=== PATIENT | male | born 1945 | race Two or more races ===

== ENCOUNTER 2022-05-28 08:32 | Inpatient (IN) | payer OTHER ==
[~2022-05-28] VITALS: Ht 165.1 cm; Wt 73.2 kg
[~2022-05-28 08:32] MED LIST: ASPI1TAB20 PO; GABA300C10 PO; GLIM-5 PO; HYDR1TAB97 PO; LISI2.5T47 PO; METF-371 PO; TAMS0.4C36 PO
[2022-05-28] MEDS ORDERED: ceFAZolin 1GM/50ML 100 ML IV ONE (08:49)
[2022-05-28] MEDS ORDERED: GELATIN 1 SPONGE SIZE 100 TOP ONE (11:38)
[2022-05-28] MEDS ORDERED: MIDAZOLAM HCL 2MG/2ML 2ml VIAL (1mg/ml) ONE (12:25)
[2022-05-28] MEDS ORDERED: fentaNYL CITRATE 100 MCG/2 ML VL ONE ×2 (12:25→14:59)
[2022-05-28] MEDS ORDERED: SUGAMMADEX 200mg/2ml Vial (100MG/ML) IV ONE (14:17)
[2022-05-28] MEDS ORDERED: PROPOFOL 10 MG/ML 20 ML IV ONE (14:55)
[2022-05-28] MEDS ORDERED: ceFAZolin 1GM/50ML 50 ML IV SCH (16:00)
[2022-05-28] MEDS ORDERED: ACETAMINOPHEN 325 MG TAB PO PRN (16:00)
[2022-05-28] MEDS ORDERED: NITROGLYCERIN 0.4 MG SL TAB SL PRN (16:00)
[2022-05-28] MEDS ORDERED: MORPHINE SULFATE INJ 2 MG/ml SYRG IV PRN ×2 (16:00)
[2022-05-28] MEDS ORDERED: ONDANSETRON HCL 4 MG/2 ML VIAL IV PRN ×2 (16:00→16:45)
[2022-05-28] MEDS ORDERED: fentaNYL CITRATE 5 ML ONE (16:06)
[2022-05-28] MEDS ORDERED: HYDROmorphone HCL 2 MG/ML VL/or syr IV PRN (16:45)
[2022-05-28] MEDS: HYDROmorphone HCL 2 MG/ML VL/or syr IV PRN ×4 (17:07→17:37)
[2022-05-28] MEDS: D5W/SOD CHLO 0.9% 1,000 ML IV SCH (21:52)
[2022-05-28] MEDS: ceFAZolin 1GM/50ML 50 ML IV SCH (21:53)
[2022-05-28 22:00] VITALS: BP 134/59
[2022-05-29] MEDS: D5W/SOD CHLO 0.9% 1,000 ML IV SCH ×2 (02:00→12:00)
[2022-05-29 05:00] VITALS: BP 145/56
[2022-05-29] MEDS: HYDROcodone-ACET 10/325MG TAB PO PRN (05:18)
[2022-05-29] MEDS: ceFAZolin 1GM/50ML 50 ML IV SCH (05:40)
[2022-05-29 09:00] VITALS: BP 125/44
[2022-05-29 13:00] VITALS: BP 133/60
[2022-05-29 17:00] VITALS: BP 106/55
[2022-05-29] MEDS: DOCUSATE SOD 100 MG CAP PO SCH (21:36)
[2022-05-29 22:00] VITALS: BP 144/51
[2022-05-29] MEDS: CYCLOBENZAPRINE HCL 10 MG TAB PO SCH (22:00)
[2022-05-30 05:00] VITALS: BP 155/59
[2022-05-30] MEDS: CYCLOBENZAPRINE HCL 10 MG TAB PO SCH ×3 (06:00→15:21)
[2022-05-30] MEDS: HYDROcodone-ACET 10/325MG TAB PO PRN (06:27)
[2022-05-30 08:00] VITALS: BP 149/60
[2022-05-30] MEDS: DOCUSATE SOD 100 MG CAP PO SCH (09:11)
[2022-05-30 11:06] LABS: Basophils # (auto) 0 10 ^3/uL (0-0.2); Basophils % (auto) 0.3 % (0.0-2.0); Eosinophils # (auto) 0 10 ^3/uL (0-0.8); Eosinophils % (auto) 0.2 % (0.0-7.0); Hematocrit 34.2 % (41.0-53.0); Hemoglobin 11.6 g/dL (13.5-17.5); Lymphocytes % (auto) 9.5 % (10.0-50.0); Mean Corpuscular Hemoglobin 30.6 pg (28.0-32.0); Mean Corpuscular Hgb Conc. 33.9 g/dL (32.0-36.0); Mean Corpuscular Volume 90.1 fL (80.0-100.0); Monocytes % (auto) 9.8 % (0.0-12.0); Neutrophils # (auto) 8.2 10 ^3/uL (1.6-8.6); Neutrophils % (auto) 80.2 % (37.0-80.0); Red Cell Distribution Width 14.3 % (11.8-14.3); White Blood Cell 10.2 10^3/uL (4.4-10.8)
[2022-05-30 11:46] LABS: BUN/Creatinine Ratio 15.1; Calcium 8.2 mg/dL (8.5-10.1); Potassium 4.4 mmol/L (3.5-5.1)
[2022-05-30 12:00] VITALS: BP 158/61
[2022-05-30 16:00] VITALS: BP 118/64
== END 2022-05-30 18:30 | disposition home or self-care (01) | DRG 455 ==
LOC: SUR 08:32 → UNDOADMIN 15:58 → TELE 15:58 → TELE-WESTW 18:12
PROVIDERS: ADMIT Orthopaedic Surgery; ATTEND Orthopaedic Surgery
PROC: 01NB0ZZ Release Lumbar Nerve, Open Approach (ICD-10-PCS; 2022-05-28)
PROC: 00NY0ZZ Release Lumbar Spinal Cord, Open Approach (ICD-10-PCS; 2022-05-28)
PROC: 4A11X4G Monitoring of Peripheral Nervous Electrical Activity, Intraoperative, External Approach (ICD-10-PCS; 2022-05-28)
PROC: 0SG0071 Fusion of Lumbar Vertebral Joint with Autologous Tissue Substitute, Posterior Approach, Posterior Column, Open Approach (ICD-10-PCS; 2022-05-28)
PROC: 0SG00AJ Fusion of Lumbar Vertebral Joint with Interbody Fusion Device, Posterior Approach, Anterior Column, Open Approach (ICD-10-PCS; principal; 2022-05-28 12:21)
DX: M48.061 Spinal stenosis, lumbar region without neurogenic claudication (principal); M54.16 Radiculopathy, lumbar region; I10 Essential (primary) hypertension; N40.0 Benign prostatic hyperplasia without lower urinary tract symptoms; E11.40 Type 2 diabetes mellitus with diabetic neuropathy, unspecified; Z20.822 Contact with and (suspected) exposure to COVID-19; M51.36 Other intervertebral disc degeneration, lumbar region
CPT/HCPCS: 36415; 72100; 76000; 80048; 82962; 85025; 86850; 86900; 86901; 97116; 97163; 97530; G0378; J0690; J2250; J2704; J7042

== ENCOUNTER 2022-08-25 08:15 | Inpatient (IN) | payer OTHER ==
[~2022-08-25] VITALS: Ht 165.1 cm; Wt 66.8 kg
[~2022-08-25 08:15] MED LIST changes: +CYAN50008 PO; +OMEG1CAP31 PO
[2022-08-25] MEDS ORDERED: ceFAZolin 1GM/50ML 50 ML IV ONE ×2 (08:32→09:04)
[2022-08-25] MEDS ORDERED: MIDAZOLAM HCL 2MG/2ML 2ml VIAL (1mg/ml) ONE (09:48)
[2022-08-25] MEDS ORDERED: MEPERIDINE HCL (50 MG/ML) 1 ML VIAL ONE (09:48)
[2022-08-25] MEDS ORDERED: GLYCOPYRROLATE 0.2 MG/ML 1ML VIAL ONE (09:48)
[2022-08-25] MEDS ORDERED: NEOSTIGMINE 1 MG/ML INJ (10mg/10ML VIAL) ONE (09:48)
[2022-08-25] MEDS ORDERED: PROPOFOL 10 MG/ML 20 ML IV ONE (09:48)
[2022-08-25] MEDS ORDERED: DexAMETHasone SOD PHOS 10MG/1ML VIAL INJ ONE (09:48)
[2022-08-25] MEDS ORDERED: ROCURONIUM 10MG/ML 10ML VIAL IV ONE (09:48)
[2022-08-25] MEDS ORDERED: ONDANSETRON HCL 4 MG/2 ML VIAL ONE (09:48)
[2022-08-25] MEDS ORDERED: HYDROmorphone HCL 2 MG/ML VL/or syr IV PRN ×2 (11:45)
[2022-08-25] MEDS ORDERED: MORPHINE SULFATE INJ 2 MG/ml SYRG IV PRN ×3 (11:45→17:00)
[2022-08-25] MEDS ORDERED: METOCLOPRAMIDE HCL 5MG/ml INJ 2ml VIAL IV PRN (11:45)
[2022-08-25] MEDS ORDERED: ACCU-CHEK COMFORT CURVE STRIP VI ONE (11:45)
[2022-08-25] MEDS ORDERED: fentaNYL CITRATE 100 MCG/2 ML VL ONE (11:54)
[2022-08-25] MEDS ORDERED: fentaNYL CITRATE 5 ML ONE (11:54)
[2022-08-25] MEDS ORDERED: HYDROcodone-ACET 10/325MG TAB PO PRN ×2 (16:30→17:00)
[2022-08-25] MEDS ORDERED: CYCLOBENZAPRINE HCL 10 MG TAB PO PRN (16:30)
[2022-08-25] MEDS ORDERED: NITROGLYCERIN 0.4 MG SL TAB SL PRN ×2 (16:30→17:00)
[2022-08-25] MEDS ORDERED: ALBUTEROL SULF 2.5 MG/0.5ML(0.5%) NEB SOLN NEB ONE (16:30)
[2022-08-25] MEDS ORDERED: ALBUTEROL SULF 2.5 MG/0.5ML(0.5%) NEB SOLN ONE (16:33)
[2022-08-25] MEDS ORDERED: DOCUSATE SOD 100 MG CAP PO PRN (17:00)
[2022-08-25] MEDS ORDERED: ceFAZolin 1GM/50ML 50 ML IV SCH (17:00)
[2022-08-25] MEDS ORDERED: D5W/SOD CHLO 0.9% 1,000 ML IV SCH (17:00)
[2022-08-25] MEDS ORDERED: ONDANSETRON HCL 4 MG/2 ML VIAL IV PRN (17:00)
[2022-08-25] MEDS ORDERED: MILK OF MAGNESIA 30ML SUSP PO PRN (17:00)
[2022-08-25] MEDS ORDERED: ACETAMINOPHEN 325 MG TAB PO PRN (17:00)
[2022-08-25 18:43] VITALS: BP 134/59
[2022-08-25 18:54] VITALS: BP 134/59
[2022-08-25] MEDS ORDERED: TAMS0.4C36 PO (19:00)
[2022-08-25] MEDS ORDERED: CYCL-839 PO (19:01)
[2022-08-25 20:00] VITALS: BP 136/62
[2022-08-25 22:00] VITALS: BP 153/72
[2022-08-25] MEDS: ceFAZolin 1GM/50ML 50 ML IV SCH (22:24)
[2022-08-25] MEDS: CYCLOBENZAPRINE HCL 10 MG TAB PO SCH (22:24)
[2022-08-26 05:00] VITALS: BP 131/63
[2022-08-26] MEDS: ceFAZolin 1GM/50ML 50 ML IV SCH (05:47)
[2022-08-26] MEDS: CYCLOBENZAPRINE HCL 10 MG TAB PO SCH (05:47)
[2022-08-26 09:01] VITALS: BP 148/73
[2022-08-26] MEDS ORDERED: DOCUSATE SOD 100 MG CAP PO SCH (10:00)
[2022-08-26] MEDS ORDERED: ACCU-CHEK COMFORT CURVE STRIP VI SCH (11:30)
[2022-08-26] MEDS ORDERED: ALBUTEROL SULF 2.5 MG/0.5ML(0.5%) NEB SOLN NEB PRN (11:30)
[2022-08-26] MEDS ORDERED: DEXTROSE (50%) 50ML SYRG IV PRN (11:30)
[2022-08-26] MEDS ORDERED: hydrALAZINE HCL 20 MG/ML VL IV PRN (11:30)
[2022-08-26] MEDS ORDERED: InsuLIN REG 1unit/0.01ml Soln (100units/ml) SC SCH (11:30)
[2022-08-26] MEDS ORDERED: LISINOPRIL 5 MG TAB PO SCH (11:30)
[2022-08-26 12:00] LABS: Basophils # (auto) 0.1 10 ^3/uL (0-0.2); Basophils % (auto) 1.2 % (0.0-2.0); Eosinophils # (auto) 0.1 10 ^3/uL (0-0.8); Eosinophils % (auto) 0.7 % (0.0-7.0); Hematocrit 37.2 % (41.0-53.0); Hemoglobin 12.5 g/dL (13.5-17.5); Lymphocytes # (auto) 1.9 10 ^3/uL (0.4-5.4); Lymphocytes % (auto) 17.2 % (10.0-50.0); Mean Corpuscular Hemoglobin 28.8 pg (28.0-32.0); Mean Corpuscular Hgb Conc. 33.5 g/dL (32.0-36.0); Monocytes # (auto) 1.2 10 ^3/uL (0-1.3); Monocytes % (auto) 11.2 % (0.0-12.0); Neutrophils # (auto) 7.6 10 ^3/uL (1.6-8.6); Neutrophils % (auto) 69.7 % (37.0-80.0); Nucleated Red Blood Cells % 0.1 %; Red Blood Cells 4.33 10^6/uL (4.5-5.90); Red Cell Distribution Width 13.9 % (11.8-14.3); White Blood Cell 10.9 10^3/uL (4.4-10.8)
[2022-08-26 12:17] LABS: BUN/Creatinine Ratio 14.6 (10.0-20.0); Calcium 9.3 mg/dL (8.5-10.1); Potassium 4.6 mmol/L (3.5-5.1)
[2022-08-26] MEDS ORDERED: TAMSULOSIN HYDROCHLORIDE 0.4 MG CAP PO SCH (18:00)
== END 2022-08-26 14:00 | disposition home or self-care (01) | DRG 496 ==
LOC: SUR 08:15 → EAST 16:56
PROVIDERS: ADMIT Orthopaedic Surgery; ATTEND Orthopaedic Surgery
PROC: 0QP004Z Removal of Internal Fixation Device from Lumbar Vertebra, Open Approach (ICD-10-PCS; principal; 2022-08-26)
DX: T84.84XA Pain due to internal orthopedic prosthetic devices, implants and grafts, initial encounter (principal); J98.11 Atelectasis; N40.0 Benign prostatic hyperplasia without lower urinary tract symptoms; I10 Essential (primary) hypertension; E11.9 Type 2 diabetes mellitus without complications; Y83.8 Other surgical procedures as the cause of abnormal reaction of the patient, or of later complication, without mention of misadventure at the time of the procedure; X58.XXXA Exposure to other specified factors, initial encounter; Z83.3 Family history of diabetes mellitus; Z82.61 Family history of arthritis; Y92.89 Other specified places as the place of occurrence of the external cause
CPT/HCPCS: 36415; 72100; 76000; 80048; 82962; 85025; 86850; 86900; 86901; 87081; 94640; G0378; J0690; J1100; J2250; J2405; J2704